=== PATIENT | male | born 1965 | race Caucasian/White ===

== ENCOUNTER 2018-10-20 17:33 | Emergency (ER) | payer MEDICARE, MEDICAID ==
[~2018-10-20] VITALS: Ht 180.3 cm; Wt 143.0 kg
[2018-10-20] MEDS ORDERED: GABA-531 PO (17:59)
[2018-10-20] MEDS ORDERED: IBUP-2030 PO (17:59)
[2018-10-20] MEDS ORDERED: BENZ1TAB7 GT (18:00)
[2018-10-20] MEDS ORDERED: ASPI-1393 PO (18:00)
[2018-10-20] MEDS ORDERED: INVEGA SUSTENNA (18:00)
[2018-10-20] MEDS ORDERED: ATOR20TA PO (18:00)
[2018-10-20] MEDS ORDERED: KETOROLAC 30MG/ML VIAL IV STA (19:45)
[2018-10-20] MEDS ORDERED: FUROSEMIDE 20MG/2ML VIAL IVP ONE (19:45)
[2018-10-20] MEDS ORDERED: ONDANSETRON HCL 4MG/2ML INJ IV STA (19:45)
[2018-10-20] MEDS ORDERED: LEVOFLOXACIN 750MG PREMIX 150 ML IV ONE (19:45)
[2018-10-20] MEDS ORDERED: MORPHINE SULFATE 4 MG/ML CPJ (NOT FOR IM USE) IV STA (19:45)
[2018-10-20] MEDS ORDERED: VANCOMYCIN 1 G PREMIX 200 ML IV ONE (19:45)
[2018-10-20 20:54] LABS: CHLORIDE 109 mEq/L (98-107)
[2018-10-20 20:58] LABS: PARTIAL THROMBOPLASTIN TIME 26.9 sec (23.4-31.0)
[2018-10-20 20:59] LABS: EOSINOPHILS % 6.8 % (0.0-5.0); HEMATOCRIT. 37.1 % (42.0-52.0); HEMOGLOBIN. 12.7 g/dL (14.0-18.0); LYMPHOCYTES % 25.2 % (20.0-50.0); MEAN CORPUSCULAR HEMOGLOBIN 31.2 pg (28.0-32.0); MEAN CORPUSCULAR VOLUME 90.8 fL (80.0-94.0); MEAN PLATELET VOLUME 6.9 fl (7.4-10.4); MONOCYTES % 9.8 % (2.0-8.0); NEUTROPHILS % 57.2 % (40.0-76.0); PLATELET 289 x1000/uL (130-400); RED BLOOD CELL COUNT 4.09 mill/uL (4.7-6.1); RED CELL DISTRIBUTION WIDTH 14.4 % (11.6-14.6)
[2018-10-20 21:03] LABS: CREATINE KINASE 385 IU/L (39-308)
[2018-10-20 21:05] LABS: CREATINE KINASE MB FRACTION 5.1 ng/mL (0.5-3.6)
[2018-10-20 22:00] VITALS: BP 119/54
[2018-10-20 22:08] LABS: CLARITY URINE CLEAR (CLEAR); COLOR URINE YELLOW (YELLOW); KETONES URINE NEGATIVE (NEGATIVE); LEUKOCYTE ESTERASE URINE NEGATIVE (NEGATIVE); NITRITE URINE NEGATIVE (NEGATIVE); OCCULT BLOOD URINE NEGATIVE (NEGATIVE); PH URINE 5.5 (4.5-8.0); PROTEIN URINE NEGATIVE (NEGATIVE); SPECIFIC GRAVITY URINE 1.016 (1.005-1.030); UROBILINOGEN URINE 0.2 E.U./dL (0.2-1.0)
[2018-10-22] MEDS ORDERED: ASPI-1393 PO (20:19)
[2018-10-22] MEDS ORDERED: ATOR20TA PO (20:20)
[2018-10-22] MEDS ORDERED: BENZ1TAB7 PO (20:21)
== END 2018-10-21 01:35 | disposition home or self-care (01) ==
LOC: ER 18:30 → EDBEDREQ 21:18 → EDBEDREQTM 21:53 → EDBEDREQSVC 21:53 → EDBEDREQ 21:53 → ENRESERV 23:32 → ER 10-21 01:35 → CANBEDREQ 10-21 05:35
DX: L03.116 Cellulitis of left lower limb (principal); L03.115 Cellulitis of right lower limb; F17.210 Nicotine dependence, cigarettes, uncomplicated; Z71.6 Tobacco abuse counseling
CPT/HCPCS: 36415; 71045; 80053; 81003; 82550; 82553; 83605; 83880; 84484; 85025; 85610; 85730; 87040; 87086; 93005; 93970; 96365; 96367; 96375; 99284; 99406; J1885; J1940; J1956; J2270; J2405; J3370

== ENCOUNTER 2018-10-21 02:24 | Inpatient (IN) | payer MEDICARE, MEDICAID ==
[~2018-10-21] VITALS: Ht 180.3 cm; Wt 142.9 kg
[~2018-10-21 02:24] MED LIST: ASPI-1393 PO; ATOR20TA PO; BENZ1TAB7 GT; GABA-531 PO; IBUP-2030 PO; INVEGA SUSTENNA
[2018-10-21] MEDS ORDERED: KETOROLAC 30MG/ML VIAL IV PRN (09:00)
[2018-10-21] MEDS ORDERED: ONDANSETRON HCL 4MG/2ML INJ IV PRN (09:00)
[2018-10-21] MEDS ORDERED: ACETAMINOPHEN 325MG TABLET PO PRN (09:00)
[2018-10-21] MEDS ORDERED: LEVOFLOXACIN 500MG PREMIX 100 ML IV NR (09:35)
[2018-10-21 11:00] VITALS: BP 97/59
[2018-10-21] MEDS: GABAPENTIN 300MG CAPSULE PO SCH ×2 (14:22→21:22)
[2018-10-21] MEDS: VANCOMYCIN 1250MG in DEXTROSE 5% WATER 250ML IV SCH ×2 (14:22→23:01)
[2018-10-21 19:36] VITALS: BP 123/66
[2018-10-21] MEDS: ENOXAPARIN 40MG/0.4ML SYR SUBCUT SCH (21:21)
[2018-10-22 00:15] VITALS: BP 134/65
[2018-10-22 04:21] VITALS: BP 121/71
[2018-10-22] MEDS: GABAPENTIN 300MG CAPSULE PO SCH ×3 (05:30→21:19)
[2018-10-22 06:52] LABS: BASOPHILS % 0.8 % (0.0-2.0); EOSINOPHILS % 6.3 % (0.0-5.0); HEMATOCRIT. 37.1 % (42.0-52.0); HEMOGLOBIN. 12.8 g/dL (14.0-18.0); MEAN CORPUSCULAR HEMOGLOBIN 31.3 pg (28.0-32.0); MEAN CORPUSCULAR VOLUME 90.7 fL (80.0-94.0); MEAN PLATELET VOLUME 6.7 fl (7.4-10.4); MONOCYTES % 8.3 % (2.0-8.0); NEUTROPHILS % 64.6 % (40.0-76.0); PLATELET 292 x1000/uL (130-400); RED BLOOD CELL COUNT 4.08 mill/uL (4.7-6.1)
[2018-10-22 07:42] LABS: CHLORIDE 108 mEq/L (98-107)
[2018-10-22 08:00] VITALS: BP 119/62
[2018-10-22] MEDS: ENOXAPARIN 40MG/0.4ML SYR SUBCUT SCH ×2 (08:45→21:22)
[2018-10-22] MEDS ORDERED: LIDOCAINE HCL 1% 20ML VIAL (Pyxis) INJ ONE (08:59)
[2018-10-22] MEDS ORDERED: SODIUM BICARBONATE 4% (2.4MEQ) 5ML VIAL IV ONE (08:59)
[2018-10-22 12:00] VITALS: BP 118/73
[2018-10-22] MEDS: LEVOFLOXACIN 500MG PREMIX 100 ML IV SCH (12:18)
[2018-10-22] MEDS: VANCOMYCIN 1500MG in DEXTROSE 5% WATER 250ML IV SCH ×2 (13:48→21:20)
[2018-10-22 16:00] VITALS: BP 137/74
[2018-10-22 20:00] VITALS: BP 151/81
[2018-10-22] MEDS ORDERED: ASPI-1393 PO (20:19)
[2018-10-22] MEDS ORDERED: ATOR20TA PO (20:20)
[2018-10-22] MEDS ORDERED: BENZ1TAB7 PO (20:21)
[2018-10-22] MEDS ORDERED: PALIPERIDONE PALMITATE IM SCH (20:30)
[2018-10-22] MEDS ORDERED: HALOPERIDOL LACTATE 5MG/ML VIAL IM PRN (21:00)
[2018-10-22] MEDS: ATORVASTATIN CALCIUM 20MG TABLET PO SCH ×2 (21:00→21:20)
[2018-10-22] MEDS: BENZTROPINE MESYLATE 1MG TABLET PO SCH ×2 (21:00→21:20)
[2018-10-22] MEDS: ASPIRIN 81MG TABLET PO SCH (21:19)
[2018-10-23] VITALS: BP 138/67
[2018-10-23 04:00] VITALS: BP 121/51
[2018-10-23] MEDS: GABAPENTIN 300MG CAPSULE PO SCH ×2 (06:49→14:40)
[2018-10-23 08:00] VITALS: BP 132/51
[2018-10-23] MEDS: ENOXAPARIN 40MG/0.4ML SYR SUBCUT SCH (09:03)
[2018-10-23] MEDS: BENZTROPINE MESYLATE 1MG TABLET PO SCH (09:03)
[2018-10-23] MEDS: VANCOMYCIN 1500MG in DEXTROSE 5% WATER 250ML IV SCH (09:03)
[2018-10-23] MEDS: ASPIRIN 81MG TABLET PO SCH (09:03)
[2018-10-23 12:00] VITALS: BP 134/72
[2018-10-23] MEDS: LEVOFLOXACIN 500MG PREMIX 100 ML IV SCH (12:00)
[2018-10-23 16:00] VITALS: BP_SYST 131; BP_SYST 132; BP_DIAS 62; BP_DIAS 75
== END 2018-10-23 16:59 | disposition home or self-care (01) | DRG 603 ==
LOC: ER 02:24 → 6EST 04:58 → ENRESERV 09:35
PROVIDERS: ADMIT Internal Medicine; ATTEND Internal Medicine
PROC: B5181ZA Fluoroscopy of Superior Vena Cava using Low Osmolar Contrast, Guidance (ICD-10-PCS; principal; 2018-10-22)
PROC: 02HV33Z Insertion of Infusion Device into Superior Vena Cava, Percutaneous Approach (ICD-10-PCS; 2018-10-22)
PROC: B548ZZA Ultrasonography of Superior Vena Cava, Guidance (ICD-10-PCS; 2018-10-22)
DX: L03.115 Cellulitis of right lower limb (principal); E44.1 Mild protein-calorie malnutrition; Z68.41 Body mass index [BMI] 40.0-44.9, adult; L03.116 Cellulitis of left lower limb; E66.9 Obesity, unspecified; F20.9 Schizophrenia, unspecified; E87.8 Other disorders of electrolyte and fluid balance, not elsewhere classified; G47.33 Obstructive sleep apnea (adult) (pediatric); E78.5 Hyperlipidemia, unspecified; G40.909 Epilepsy, unspecified, not intractable, without status epilepticus; F17.200 Nicotine dependence, unspecified, uncomplicated; Z71.3 Dietary counseling and surveillance; Z88.0 Allergy status to penicillin; Z88.8 Allergy status to other drugs, medicaments and biological substances; Z79.82 Long term (current) use of aspirin; Z79.899 Other long term (current) drug therapy; Z79.1 Long term (current) use of non-steroidal anti-inflammatories (NSAID)
CPT/HCPCS: 36415; 36573; 80048; 80202; 84145; 93306; 96374; 99285; C1725; C1769; J1630; J1650; J1885; J1956; J3370; J3490; J7060

== ENCOUNTER 2019-01-14 11:36 | Emergency (ER) | payer MEDICARE, MEDICAID ==
[~2019-01-14] VITALS: Ht 172.7 cm; Wt 138.0 kg
[~2019-01-14 11:36] MED LIST changes: -BENZ1TAB7 GT; +BENZ1TAB7 PO
[2019-01-14 11:37] VITALS: BP 142/86
[2019-01-14] MEDS ORDERED: DIPHENHYDRAMINE 25MG CAPSULE PO ONE (12:00)
[2019-01-14] MEDS ORDERED: PREDNISONE 20MG TABLET PO ONE (12:00)
== END 2019-01-14 12:49 | disposition home or self-care (01) ==
LOC: ER 12:20
DX: S00.261A Insect bite (nonvenomous) of right eyelid and periocular area, initial encounter (principal); S20.361A Insect bite (nonvenomous) of right front wall of thorax, initial encounter; W57.XXXA Bitten or stung by nonvenomous insect and other nonvenomous arthropods, initial encounter; Y93.89 Activity, other specified; Y92.89 Other specified places as the place of occurrence of the external cause; Y99.8 Other external cause status; E78.00 Pure hypercholesterolemia, unspecified; F20.9 Schizophrenia, unspecified; Z98.890 Other specified postprocedural states; Z79.899 Other long term (current) drug therapy; Z88.0 Allergy status to penicillin; Z88.1 Allergy status to other antibiotic agents
CPT/HCPCS: 99283; J7512; Q0163

== ENCOUNTER 2019-06-15 07:19 | Inpatient (IN) | payer MEDICARE, MEDICAID ==
[~2019-06-15] VITALS: Ht 180.3 cm; Wt 154.4 kg
[~2019-06-15 07:19] MED LIST changes: -ASPI-1393 PO; +ASPI-1497 PO
[2019-06-15] MEDS ORDERED: ACETAMINOPHEN 325MG TABLET PO STA (07:41)
[2019-06-15] MEDS ORDERED: LEVETIRACETAM 1000MG/100ML 100 ML IV ONE (07:45)
[2019-06-15] MEDS ORDERED: ALBUTEROL 6.7GM HFA INHALER ORI ONE (07:45)
[2019-06-15 09:25] LABS: CLARITY URINE CLEAR (CLEAR); COLOR URINE DARK YELLOW (YELLOW); KETONES URINE NEGATIVE (NEGATIVE); LEUKOCYTE ESTERASE URINE NEGATIVE (NEGATIVE); NITRITE URINE NEGATIVE (NEGATIVE); OCCULT BLOOD URINE 2+ (NEGATIVE); PROTEIN URINE 3+ (NEGATIVE); SPECIFIC GRAVITY URINE 1.025 (1.005-1.030)
[2019-06-15 09:29] LABS: BASOPHILS % 0.3 % (0.0-2.0); EOSINOPHILS % 0.3 % (0.0-5.0); HEMATOCRIT. 43.7 % (42.0-52.0); HEMOGLOBIN. 14.9 g/dL (14.0-18.0); LYMPHOCYTES % 8.3 % (20.0-50.0); MEAN CORPUSCULAR HEMOGLOBIN 30.9 pg (28.0-32.0); MEAN CORPUSCULAR VOLUME 90.7 fL (80.0-94.0); MEAN PLATELET VOLUME 6.9 fl (7.4-10.4); MONOCYTES % 8.2 % (2.0-8.0); NEUTROPHILS % 82.9 % (40.0-76.0); PLATELET 264 x1000/uL (130-400); RED BLOOD CELL COUNT 4.81 mill/uL (4.7-6.1); RED CELL DISTRIBUTION WIDTH 14.7 % (11.6-14.6)
[2019-06-15 09:33] LABS: CHLORIDE 103 mEq/L (98-107)
[2019-06-15 09:37] LABS: D-DIMER 1.05 mg/L FEU (<0.50); INR 1.3
[2019-06-15 09:42] LABS: CREATINE KINASE 862 IU/L (39-308)
[2019-06-15 10:41] LABS: PROTHROMBIN TIME 13.7 sec (9.6-11.0)
[2019-06-15 11:30] VITALS: BP 111/67
[2019-06-15] MEDS ORDERED: ACETAMINOPHEN 325MG TABLET PO PRN (13:00)
[2019-06-15] MEDS ORDERED: METOCLOPRAMIDE HCL 10MG/2ML VIAL IV PRN (13:00)
[2019-06-15] MEDS ORDERED: AZITHROMYCIN 500 MG TABLET PO SCH (14:00)
[2019-06-15] MEDS: ZINC SULFATE 220 MG ( 50 ) CAPSULE PO SCH (15:55)
[2019-06-15] MEDS: THIAMINE HCL 100MG TABLET PO SCH (15:55)
[2019-06-15] MEDS: AMLODIPINE 5MG TABLET PO SCH ×2 (15:56→20:30)
[2019-06-15] MEDS: ASCORBIC ACID 500 MG TABLET PO SCH ×2 (15:56→20:30)
[2019-06-15 16:00] VITALS: BP 137/65
[2019-06-15] MEDS: CEFTRIAXONE 1 G PREMIX 50 ML IV SCH (16:14)
[2019-06-15] MEDS: ENOXAPARIN 30MG/0.3ML SYR SUBCUT SCH (16:16)
[2019-06-15 20:30] VITALS: BP 121/54
[2019-06-15] MEDS: LEVETIRACETAM 500MG TABLET PO SCH (20:30)
[2019-06-15] MEDS: HYDROXYCHLOROQUINE SULFATE 200MG TABLET PO SCH (21:54)
[2019-06-16] VITALS: BP 112/62
[2019-06-16 04:00] VITALS: BP 147/39
[2019-06-16] MEDS: ENOXAPARIN 30MG/0.3ML SYR SUBCUT SCH ×2 (05:11→17:34)
[2019-06-16 08:00] VITALS: BP 156/86
[2019-06-16] MEDS: THIAMINE HCL 100MG TABLET PO SCH ×2 (09:50→17:34)
[2019-06-16] MEDS: ASCORBIC ACID 500 MG TABLET PO SCH ×2 (09:50→23:00)
[2019-06-16] MEDS: AMLODIPINE 5MG TABLET PO SCH ×2 (09:51→23:00)
[2019-06-16] MEDS: ZINC SULFATE 220 MG ( 50 ) CAPSULE PO SCH (09:51)
[2019-06-16] MEDS: LEVETIRACETAM 500MG TABLET PO SCH ×2 (09:51→22:59)
[2019-06-16] MEDS: AZITHROMYCIN 250 MG TABLET PO SCH (09:51)
[2019-06-16] MEDS: HYDROXYCHLOROQUINE SULFATE 200MG TABLET PO SCH ×2 (09:56→22:59)
[2019-06-16 10:59] LABS: *AMPHETAMINES SCREEN URINE NEGATIVE (NEGATIVE); *BARBITURATES SCREEN URINE NEGATIVE (NEGATIVE); *COCAINE SCREEN URINE NEGATIVE (NEGATIVE); CANNABINOID URINE SCREEN PRESUMTIVE POSITIVE (NEGATIVE)
[2019-06-16 11:00] LABS: *BENZODIAZEPINES SCREEN URINE NEGATIVE (NEGATIVE); METHADONE URINE SCREEN NEGATIVE (NEGATIVE); OPIATES URINE SCREEN NEGATIVE (NEGATIVE); PHENCYCLIDINE URINE SCREEN NEGATIVE (NEGATIVE)
[2019-06-16] MEDS: ALBUTEROL 6.7GM HFA INHALER ORI SCH ×2 (11:00→17:35)
[2019-06-16 11:19] LABS: BG BASE EXCESS 1.1 mmol/L (-2.0-2.0); BG CARBOXYHEMOGLOBIN 0.8 % (0.5-1.5); BG DEOXYHEMOGLOBIN 2.2 % (0.0-5.0); BG FRACTION INSPIRED OXYGEN 32; BG HCO3 ACT 28.5 mmol/L (22.0-26.0); BG METHEMOGLOBIN 0.2 % (0.0-1.5); BG OXYGEN SATURATION 97.8 % (92.0-98.5); BG OXYHEMOGLOBIN 96.8 % (94.0-97.0); BG PCO2 56.9 mmHg (35.0-45.0); BG PH 7.318 (7.350-7.450); BG PO2 108.9 mmHg (75.0-100.0); BG SAMPLE SITE RIGHT BRACHIAL; BG TOTAL HEMOGLOBIN 14.7 g/dL (12.0-18.0); BG VENT MODE NASAL CANNULA
[2019-06-16 12:00] VITALS: BP 114/69
[2019-06-16] MEDS: CEFTRIAXONE 1 G PREMIX 50 ML IV SCH (14:56)
[2019-06-16 16:00] VITALS: BP 121/77
[2019-06-16 20:00] VITALS: BP 167/71
[2019-06-17] VITALS: BP 143/78
[2019-06-17] MEDS: ALBUTEROL 6.7GM HFA INHALER ORI SCH (00:49)
[2019-06-17 04:00] VITALS: BP 135/77
[2019-06-17] MEDS: ENOXAPARIN 30MG/0.3ML SYR SUBCUT SCH ×2 (06:28→17:24)
[2019-06-17 08:00] VITALS: BP 120/51
[2019-06-17] MEDS: ZINC SULFATE 220 MG ( 50 ) CAPSULE PO SCH (09:41)
[2019-06-17] MEDS: AMLODIPINE 5MG TABLET PO SCH ×2 (09:41→21:40)
[2019-06-17] MEDS: LEVETIRACETAM 500MG TABLET PO SCH ×2 (09:41→21:39)
[2019-06-17] MEDS: THIAMINE HCL 100MG TABLET PO SCH ×2 (09:42→16:39)
[2019-06-17] MEDS: ASCORBIC ACID 500 MG TABLET PO SCH (09:42)
[2019-06-17] MEDS: HYDROXYCHLOROQUINE SULFATE 200MG TABLET PO SCH (09:42)
[2019-06-17] MEDS: AZITHROMYCIN 250 MG TABLET PO SCH (09:43)
[2019-06-17] MEDS: CEFTRIAXONE 1 G PREMIX 50 ML IV SCH (16:38)
[2019-06-17 20:00] VITALS: BP 158/98
[2019-06-17] MEDS: ALBUTEROL (0.083%) 2.5MG/3ML NEB HHN SCH (21:39)
[2019-06-18] VITALS: BP 139/86
[2019-06-18] MEDS: ALBUTEROL (0.083%) 2.5MG/3ML NEB HHN SCH ×4 (02:37→13:30)
[2019-06-18 04:00] VITALS: BP 155/76
[2019-06-18] MEDS: ENOXAPARIN 40MG/0.4ML SYR SUBCUT SCH ×2 (07:03→17:05)
[2019-06-18] MEDS: LEVETIRACETAM 500MG TABLET PO SCH (09:26)
[2019-06-18] MEDS: AMLODIPINE 5MG TABLET PO SCH (09:26)
[2019-06-18] MEDS ORDERED: ALBU18HF2 IH (13:07)
[2019-06-18] MEDS ORDERED: AMLO5TAB88 MT (13:07)
[2019-06-18] MEDS ORDERED: KEPP500 MT (13:07)
[2019-06-18] MEDS: CEFTRIAXONE 1 G PREMIX 50 ML IV SCH (15:05)
[2019-06-18] MEDS: NYSTATIN POWDER 15GM TOP SCH ×2 (15:06→17:05)
[2019-06-18 15:41] VITALS: BP 137/88
[2019-06-18 16:00] VITALS: BP 140/85
== END 2019-06-18 19:55 | disposition home or self-care (01) | DRG 871 ==
LOC: ER 07:19 → 7EST 09:36 → EDBEDREQ 09:42 → EDBEDREQSVC 09:42 → ENRESERV 10:45 → 7EST 15:56 → 6WST 06-17 00:49
PROVIDERS: ADMIT Internal Medicine; ATTEND Internal Medicine
DX: A41.89 Other specified sepsis (principal); J96.00 Acute respiratory failure, unspecified whether with hypoxia or hypercapnia; J18.9 Pneumonia, unspecified organism; M62.82 Rhabdomyolysis; Z68.42 Body mass index [BMI] 45.0-49.9, adult; D72.810 Lymphocytopenia; E66.9 Obesity, unspecified; E78.5 Hyperlipidemia, unspecified; F20.9 Schizophrenia, unspecified; G40.909 Epilepsy, unspecified, not intractable, without status epilepticus; I11.9 Hypertensive heart disease without heart failure; J06.9 Acute upper respiratory infection, unspecified; T42.6X6A Underdosing of other antiepileptic and sedative-hypnotic drugs, initial encounter; Y92.89 Other specified places as the place of occurrence of the external cause; Z88.0 Allergy status to penicillin; Z88.8 Allergy status to other drugs, medicaments and biological substances; Z79.82 Long term (current) use of aspirin; Z79.899 Other long term (current) drug therapy; Z71.3 Dietary counseling and surveillance; Z03.818 Encounter for observation for suspected exposure to other biological agents ruled out
CPT/HCPCS: 36415; 36600; 71045; 80053; 80305; 81003; 82375; 82550; 82553; 82728; 82805; 83605; 83615; 83880; 84145; 84484; 85025; 85379; 86140; 87635; 87804; 93005; 99291; J0696; J1650; J1953